=== PATIENT | male | born 1995 | race Caucasian/White ===

== ENCOUNTER 2021-10-27 21:51 | Emergency (ER) | payer OTHER ==
[~2021-10-27] VITALS: Ht 165.1 cm; Wt 63.5 kg
--- NOTE | 2021-10-27 22:38 | NUR ---
pt came to er c/o n/v diarrhea. pt placed in room 4b
[2021-10-27] MEDS ORDERED: IV NORMAL SALINE 1000 ML BAG IV ONE (22:45)
[2021-10-27] MEDS ORDERED: IV NS 1000 ML 1,000 ML IV ONE (22:45)
[2021-10-27] MEDS ORDERED: HYDROMORPHONE 1 MG/1 ML DISP.SYRIN IV ONE (22:45)
[2021-10-27] MEDS ORDERED: PROCHLORPERAZINE EDISYLATE 10 MG/2 ML VIAL IV ONE (22:45)
[2021-10-27] MEDS ORDERED: PROCHLORPERAZINE EDISYLATE 10 MG/2 ML VIAL ONE (22:49)
[2021-10-27] MEDS ORDERED: HYDROMORPHONE 1 MG/1 ML DISP.SYRIN ONE (22:49)
--- NOTE | 2021-10-27 22:50 | NUR ---
Dr. Green at bedside for MSE.
[2021-10-27 23:17] LABS: HEMATOCRIT 40.3 % (36.7-47.1); MEAN CORPUSCULAR HEMOGLOBIN 29.7 uug (23.8-33.4); MEAN CORPUSCULAR VOLUME 83.4 fL (73.0-96.2); PLATELET COUNT (AUTO) 172 K/uL (152-348)
[2021-10-27 23:23] LABS: CREATININE 1.2 mg/dL (0.6-1.3); POTASSIUM 2.9 mmol/L (3.5-5.1)
[2021-10-27 23:29] LABS: BILIRUBIN,DIRECT 0.1 mg/dL (0.0-0.2); BILIRUBIN,TOTAL 0.7 mg/dL (0.2-1.0); TOTAL PROTEIN, SERUM 7.6 g/dL (6.4-8.2)
[2021-10-27] MEDS ORDERED: POTASSIUM BICARBONATE/CIT AC 25 MEQ TABLET.EFF PO ONE (23:45)
[2021-10-27] MEDS ORDERED: PROC10TA29 PO (23:51)
[2021-10-27] MEDS ORDERED: OXYC-128 PO (23:51)
[2021-10-27] MEDS ORDERED: POTASSIUM BICARBONATE/CIT AC 25 MEQ TABLET.EFF ONE (23:53)
--- NOTE | 2021-10-28 00:20 | NUR ---
Patient discharged to home in stable condition. Written and verbal after care instructions given. Patient verbalizes understanding of instructions. Stressed follow up or return to ER for worsening s/s.
[2021-10-28 00:23] VITALS: BP 129/67
== END 2021-10-28 00:24 | disposition home or self-care (01) ==
LOC: ER 21:54
DX: A08.4 Viral intestinal infection, unspecified (principal); E87.6 Hypokalemia; Z20.822 Contact with and (suspected) exposure to COVID-19; R03.0 Elevated blood-pressure reading, without diagnosis of hypertension
CPT/HCPCS: 99284; 96374; 96375; 80076; 80048; 85025; 74018; 83605; J0780; J1170; J7040 ×2; 36415; A4663